=== PATIENT | female | born 1990 | race Caucasian/White ===

== ENCOUNTER 2025-06-17 04:01 | Inpatient (IN) | payer OTHER ==
[2025-06-17 05:04] VITALS: BMI 30.2
[2025-06-17 05:36] LABS: Fetal Membranes Rupture RUPTURE DETECTED (No Rupture)
[2025-06-17 06:01] LABS: #Basophils Less than 0.03 10x3/uL (0.0-0.2); #Eosinophils 0.03 10x3/uL (0.0-0.5); #Monocytes 0.50 10x3/uL (0.0-1.1); #Neutrophils 7.45 10x3/uL (1.5-8.4); %Basophils 0.2 % (0.0-2.0); %Eosinophils 0.3 % (0.0-6.0); %Lymphocytes 13.5 % (18.0-47.0); %Monocytes 5.3 % (0.0-10.0); %Neutrophils 78.7 % (40.0-75.0); Hematocrit 35.2 % (34.9-44.5); Hemoglobin 11.6 g/dL (12.0-15.5); Mean Corpuscular Hemoglobin 28.4 pg (27.0-33.0); Mean Corpuscular Volume 86.3 fL (81.6-98.3); Platelet Count 158 10x3/uL (150-450); Red Blood Cell (RBC) Count 4.08 10x6/uL (3.90-5.03); White Blood Cell (WBC) Count 9.47 10x3/uL (3.5-10.5)
[2025-06-17] MEDS: fentaNYL/Ropivacaine Epidural 100 ML ONE (06:04)
[2025-06-17] MEDS ORDERED: Carboprost 250 MCG/ML AMP IM PRN (06:16)
[2025-06-17] MEDS ORDERED: Tranexamic Acid 1,000 MG/10 ML VIAL IVP PRN (06:16)
[2025-06-17] MEDS ORDERED: Diphenoxylate HCl/Atropine Tablet PO PRN ×2 (06:16)
[2025-06-17] MEDS ORDERED: Lidocaine 1% (PF) 30 ML VIAL SC PRN (06:16)
[2025-06-17] MEDS ORDERED: hydrALAZINE 20 MG/ML VIAL SLOW IVP PRN ×3 (06:16→12:02)
[2025-06-17] MEDS ORDERED: Methylergonovine 0.2 MG/ML VIAL IM PRN ×2 (06:16→12:02)
[2025-06-17] MEDS ORDERED: HYDROcodone/Acetaminophen 5/325 mg Tablet PO PRN (06:16)
[2025-06-17] MEDS ORDERED: Ondansetron PF 4 MG/2 ML Vial IVP PRN ×2 (06:16→12:02)
[2025-06-17] MEDS ORDERED: Ibuprofen 800 MG TAB PO PRN (06:16)
[2025-06-17] MEDS ORDERED: Oxytocin 30 units/NS 500 ML 500 ML IV SCH ×3 (06:30→12:02)
[2025-06-17 06:59] LABS: Hep B Surf Ag - L&D Non-Reactive S/CO (NonReactive)
[2025-06-17 07:01] LABS: Syphilis Antibody Index 0.07 S/CO (<1.00 Non-Reactive)
[2025-06-17] MEDS ORDERED: Lanolin Ointment 7 GM TUBE TOP PRN (12:02)
[2025-06-17] MEDS ORDERED: Preparation H Ointment 28 GM TUBE PR PRN (12:02)
[2025-06-17] MEDS ORDERED: Bisacodyl 10 MG SUPP PR PRN (12:02)
[2025-06-17] MEDS ORDERED: Milk Of Magnesia 30 ML UDCUP PO PRN (12:02)
[2025-06-17] MEDS ORDERED: diphenhydrAMINE 25 MG CAP PO PRN (12:02)
[2025-06-17] MEDS: Ibuprofen 800 MG TAB PO SCH (12:50)
[2025-06-17] MEDS: Boostrix 0.5 ML (Tdap) VIAL (>/=7 yrs of age) IM ONE (13:36)
[2025-06-17] MEDS: Oxytocin 30 units/NS 500 ML 500 ML ONE (13:36)
[2025-06-17] MEDS: Benzocaine-Menthol 82.5 ML CAN TOP PRN (13:51)
[2025-06-17] MEDS ORDERED: Ferrous Sulfate 325 MG TAB PO SCH (17:00)
[2025-06-18 05:19] LABS: Hematocrit 35.8 % (34.9-44.5); Hemoglobin 11.4 g/dL (12.0-15.5); Mean Corpuscular Hemoglobin 28.5 pg (27.0-33.0); Mean Corpuscular Volume 89.5 fL (81.6-98.3); Platelet Count 143 10x3/uL (150-450); Red Blood Cell (RBC) Count 4.00 10x6/uL (3.90-5.03); White Blood Cell (WBC) Count 10.37 10x3/uL (3.5-10.5)
[2025-06-18 12:00] VITALS: BP 114/72; TEMP 97.6
== END 2025-06-18 12:45 | disposition home or self-care (01) | DRG 807 ==
LOC: CSHLD/OP 04:01 → CSHLD 07:18 → CSHPP 13:08
PROVIDERS: ADMIT Family Medicine; ATTEND Family Medicine
PROC: 10E0XZZ Delivery of Products of Conception, External Approach (ICD-10-PCS; principal; 2025-06-17)
PROC: 10907ZC Drainage of Amniotic Fluid, Therapeutic from Products of Conception, Via Natural or Artificial Opening (ICD-10-PCS; 2025-06-17)
PROC: 10H07YZ Insertion of Other Device into Products of Conception, Via Natural or Artificial Opening (ICD-10-PCS; 2025-06-17)
PROC: 0HQ9XZZ Repair Perineum Skin, External Approach (ICD-10-PCS; 2025-06-17)
PROC: 0UQMXZZ Repair Vulva, External Approach (ICD-10-PCS; 2025-06-17)
DX: O42.92 Full-term premature rupture of membranes, unspecified as to length of time between rupture and onset of labor (principal); Z37.0 Single live birth; O70.0 First degree perineal laceration during delivery; O69.82X0 Labor and delivery complicated by other cord entanglement, without compression, not applicable or unspecified; Z3A.38 38 weeks gestation of pregnancy; Z88.1 Allergy status to other antibiotic agents
CPT/HCPCS: 36415; 51702; 84112; 85025; 86780; 86850; 86900; 86901; 87340; 99285; J2590